=== PATIENT | female | born 1960 | race Caucasian/White ===

== ENCOUNTER → 2019-11-13 11:09 | Outpatient (CLI) | payer OTHER, SELFPAY ==
--- NOTE | 2019-11-13 11:24 | DI.MG.S_ITS ---
Patient Name: MARY BEVERLY date: 1960 Sex: F Attending Physician: Estiven Indications: Date: 11/13/2019 11:27 At the request of: IONA EUCEDA Procedure: MM screening mammo BI BILATERAL DIGITAL SCREENING MAMMOGRAM 3D/2D WITH CAD: 11/13/2019 CLINICAL: Routine screening. Comparison is made to exams dated: 12/16/2017 mammogram, 07/22/2016 mammogram, and 10/05/2013 mammogram - [facility]. There are scattered fibroglandular elements in both breasts. Current study was also evaluated with a Computer Aided Detection (CAD) system. No significant masses, calcifications, or other findings are seen in either breast. There has been no significant interval change. IMPRESSION: NEGATIVE There is no mammographic evidence of malignancy. A 1 year screening mammogram is recommended. This exam was interpreted at Station ID: [id number]. NOTE: For mammograms, a report in lay terms will be sent to the patient. Approximately 15% of breast malignancies will not be visualized mammographically. In the management of a palpable breast mass, a negative mammogram must not discourage biopsy of a clinically suspicious lesion. Electronically Signed By: Kaleigh torres/jesika:11/15/2019 11:24:15 letter sent: Normal Exam ACR BI-RADS Category 1: Negative 3341F
== END ==
PROVIDERS: PCP Student in an Organized Health Care Education/Training Program; Referring Provider Student in an Organized Health Care Education/Training Program; Visit Provider Student in an Organized Health Care Education/Training Program
DX: Z12.31 Encounter for screening mammogram for malignant neoplasm of breast (principal)
CPT/HCPCS: 77063; 77067

== ENCOUNTER → 2020-04-07 14:12 | Outpatient (CLI) | payer OTHER, SELFPAY ==
--- NOTE | 2020-04-07 | DI.US.S_ITS ---
PROCEDURE: US PELVIC COMPLETE INDICATIONS: IUD PLACEMENT TECHNIQUE: Real-time scanning was performed of the pelvic organs, with image documentation. Additional endovaginal scanning was necessary due to incomplete visualization of the adnexal and endometrial structures by transabdominal scanning. COMPARISON: None. FINDINGS: Uterus: Uterus is normal in size at 3.8 x 4.6 x 8.7 cm, anteverted. The endometrium measures 6.4 mm in combined thickness. IUD located within the lower uterine segment area, with the IUD margin apparently penetrating the anterior myometrium, depth indeterminate. Ovaries: Not seen Other: No pathologic free abdominal or pelvic fluid. IMPRESSION: IUD extends into the lower uterine segment/upper cervical margin with apparent partial penetration into the myometrium by a component of the IUD. No hematoma is associated. Normal endometrial lining and myometrium more superiorly. Nonvisualization of the ovaries bilaterally due to overlying bowel gas. Dictated by: Moisés Baker M.D. on 04/07/2020 at 15:35 Approved by: Moisés Baker M.D. on 04/07/2020 at 15:37
== END ==
PROVIDERS: PCP Student in an Organized Health Care Education/Training Program; Referring Provider Student in an Organized Health Care Education/Training Program; Visit Provider Student in an Organized Health Care Education/Training Program
DX: Z30.431 Encounter for routine checking of intrauterine contraceptive device (principal)
CPT/HCPCS: 76830; 76856

== ENCOUNTER → 2020-05-25 08:49 | Outpatient (CLI) | payer OTHER, SELFPAY ==
[2020-05-25 09:45] LABS: COVID19 -Nasal RAPID Negative (Negative)
== END ==
PROVIDERS: PCP Student in an Organized Health Care Education/Training Program; Visit Provider Specialist
DX: Z01.812 Encounter for preprocedural laboratory examination (principal); Z20.822 Contact with and (suspected) exposure to COVID-19
CPT/HCPCS: 87635

== ENCOUNTER 2020-05-26 07:29 | Day surgery (SDC) | payer OTHER, SELFPAY ==
[2020-05-26] VITALS (9 sets, daily range): BP systolic 108–143; BP diastolic 61–90; PULSE 70–95; RESP 12–18; TEMP 36.3–36.8; O2SAT 93–97; BMI 34.1
--- NOTE | 2020-05-26 | PATH_ITS ---
[facility] Accession Number: [id number] . 01 Material submitted: . endometrium - ENDOMETRIAL CURRETINGS . 02 Diagnosis: Endometrium, Curettings: 1. Pseudodecidualized endometrium. 2. One endometrial fragment with fibrosis and a few thick walled vessels suggestive of polyp in the appropriate radiologic and clinical setting. 3. Squamous epithelium with no diagnostic abnormality. 4. Negative for atypical hyperplasia and malignancy. MRV 05/31/2020 1400 Local . 02 Electronically signed: . Lisa Paniagua MD, Pathologist NPI- [id number] . 01 Gross description: . ENDOMETRIAL CURRETINGS: Received in formalin are minute fragments of mucoid and hemorrhagic material measuring 0.4 x 0.4 x 0.3 cm in aggregate. Submitted in toto in 1 cassette. /LEONEL 05/30/2020 0129 Local . 02 Pathologist provided ICD-10: T83.32XA . 02 CPT . 564814 Performed at: 01 [facility] [address] [facility], [place], [place] [id number] MD Jude Yun MD Phone: [phone] Performed at: 02 [facility] [address] [place], [place] [id number] MD Lisa Paniagua MD Phone: [phone]
[2020-05-26] MEDS: LACTATED RINGERS 1,000 ML 100 ML IV (08:07)
--- NOTE | 2020-05-26 08:11 | PM.PREOP ---
Pre-operative Note COVID-19 COVID-19 status: Negative Result date/Date tested (Pos, Neg/Pending): 05/25/20 Interval Note History & Physical reviewed/Exam performed by Physician: Yes Changes to H&P: No
--- NOTE | 2020-05-26 08:39 | SUR.OPER ---
Lithotomy on padded OR bed, head on pillow, arms secured on padded arm boards at <90 degrees abduction. Legs secured in padded yellow fins stirrups.
--- NOTE | 2020-05-26 08:50 | PM.OP.1 ---
Operative Date/Time/Diagnoses Date of procedure: 05/26/20 Time of procedure: 08:50 Pre-op diagnosis: Retained IUD Post-op diagnosis: same Procedure & Clinicians Procedure: Hysteroscopy with removal of retained IUD, with D&C Same procedure as scheduled: Yes Indications: Retained IUD initially placed in 2018 for menorrhagia Surgeon: Mia Turner Click Yes if Unassisted: Yes Anesthesia Type: General Operative Notes Findings: IUD easily removed after cervical dilation. Endometrial lining appeared thin without lesions of the endometrium or endocervical canal. Closure Type: not applicable Specimen(s): other (Endometrial curettage) Estimated Blood Loss (mL): 1 Blood products transfused: none Procedure in detail: The patient was brought to the operating room where she underwent general anesthesia. She was placed in low stirrups She was prepped and draped in usual sterile fashion with pulsatile stockings in place and functional, warming in place. Antibiotics were not indicated. Her bladder was drained with in and out catheter. A single-tooth tenaculum was placed on the anterior lip of the cervix and the uterus dilated to #8 Hegar dilator. After dilation the IUD strings presented to the cervical os and the strings were grasped and the IUD removed without difficulty. The hysteroscope was placed into the uterus with a sorbitol solution running and under constant suction. A endometrial curettage was performed. The endometrial curettage was sent to pathology. The patient went to recovery room in good condition counts of instruments and sponges were correct. Complications: none Post-operative Condition: stable Disposition: same day surgery Plan for aftercare: Home when awake and stable. No further follow-up needed.
[2020-05-26] MEDS: ONDANSETRON 4 MG/2 ML INJ IV (09:15)
[2020-05-26] MEDS: OXYCODONE/ACETAMINOPHEN 5/325 TABLET 1 TAB PO ×2 (09:15→09:44)
--- NOTE | 2020-05-26 10:08 | SUR.PHASEII ---
Pt medicated with additional pain med, ready to go now, pain now 2/10, dressed, scant to small amount bloody drainage on leonel pad.
--- NOTE | 2020-05-26 10:42 | SUR.PHASEII ---
Pt left when ready and left in stable condition.
--- NOTE | 2020-05-26 10:44 | SUR.PHASEII ---
10:15am:Pt left when ready and left in stable condition.
== END 2020-05-26 10:15 | disposition home or self-care (01) ==
PROVIDERS: PCP Student in an Organized Health Care Education/Training Program; Referring Provider Specialist; Visit Provider Specialist
PROC: 0UDB8ZZ Extraction of Endometrium, Via Natural or Artificial Opening Endoscopic (ICD-10-PCS; CPT 58558; principal; 2020-05-26 08:45)
DX: N94.6 Dysmenorrhea, unspecified (principal); T83.32XA Displacement of intrauterine contraceptive device, initial encounter
CPT/HCPCS: 58558; 58301; J1100; J2405; J2704; J3010

== ENCOUNTER → 2021-05-18 14:20 | Outpatient (CLI) | payer OTHER, SELFPAY ==
--- NOTE | 2021-05-18 | DI.MG.S_ITS ---
BILATERAL DIGITAL SCREENING MAMMOGRAM 3D/2D WITH CAD: 05/18/2021 Comparison is made to exams dated: 11/13/2019 mammogram - [facility], 12/16/2017 mammogram, and 07/22/2016 mammogram - [facility]. There are scattered fibroglandular elements in both breasts. Current study was also evaluated with a Computer Aided Detection (CAD) system. No significant masses, calcifications, or other findings are seen in either breast. There has been no significant interval change. IMPRESSION: NEGATIVE There is no mammographic evidence of malignancy. A 1 year screening mammogram is recommended. This exam was interpreted at Station ID: [id number]. NOTE: For mammograms, a report in lay terms will be sent to the patient. Approximately 15% of breast malignancies will not be visualized mammographically. In the management of a palpable breast mass, a negative mammogram must not discourage biopsy of a clinically suspicious lesion. Electronically Signed By: Rafael Harris acr/penrad:05/18/2021 14:47:29 letter sent: Normal Exam ACR BI-RADS Category 1: Negative 3341F
== END ==
PROVIDERS: PCP Student in an Organized Health Care Education/Training Program; Referring Provider Student in an Organized Health Care Education/Training Program; Visit Provider Student in an Organized Health Care Education/Training Program
DX: Z12.31 Encounter for screening mammogram for malignant neoplasm of breast (principal)
CPT/HCPCS: 77063; 77067

== ENCOUNTER → 2022-06-03 12:56 | Outpatient (CLI) | payer OTHER, SELFPAY ==
--- NOTE | 2022-06-03 | DI.RAD.S_ITS ---
PROCEDURE: XR THORACIC SPINE 2V INDICATIONS: BACK PAIN TECHNIQUE: 3 views of the thoracic spine were acquired. COMPARISON: None. FINDINGS: Bones: No acute fractures or dislocations. No suspicious bony lesions. 12 pairs of ribs are noted, and appear intact where visualized. Mild dextrocurvature of the mid and lower thoracic spine centered at approximately the T9 level. No acute compression fracture. Multilevel spondylosis of the thoracic spine and imaged portions of the lower cervical spine. Soft tissues: No paravertebral stripe thickening. Visualized portions of the lungs are clear. Surgical clips in right upper quadrant compatible with prior cholecystectomy. IMPRESSION: Thoracic spine without acute osseous abnormalities. Multilevel thoracic spondylosis. Dictated by: Timothy Reynoso M.D. on 06/03/2022 at 17:21 Approved by: Timothy Reynoso M.D. on 06/03/2022 at 17:22
--- NOTE | 2022-06-03 | DI.RAD.S_ITS ---
PROCEDURE: XR LUMBAR SPINE 2-3V INDICATIONS: Dorsalgia, unspecified TECHNIQUE: 3 views of the lumbar spine were acquired. COMPARISON: None. FINDINGS: Bones: 5 [id number] vertebrae are present. There is normal bony alignment. No acute vertebral body compression fractures. No suspicious bony lesions. Multilevel spondylosis of the imaged spine. Mid and lower lumbar facet arthropathy. Soft tissues: Overlying bowel gas pattern is normal. No suspicious soft tissue calcifications. Surgical clips in the right upper quadrant compatible with prior cholecystectomy. IMPRESSION: Lumbar spine without acute osseous abnormalities. Multilevel lumbar spondylosis. Dictated by: Timothy Reynoso M.D. on 06/03/2022 at 17:20 Approved by: Timothy Reynoso M.D. on 06/03/2022 at 17:20
== END ==
PROVIDERS: PCP Student in an Organized Health Care Education/Training Program; Referring Provider Student in an Organized Health Care Education/Training Program; Visit Provider Student in an Organized Health Care Education/Training Program
DX: M47.814 Spondylosis without myelopathy or radiculopathy, thoracic region (principal); M47.816 Spondylosis without myelopathy or radiculopathy, lumbar region; M54.9 Dorsalgia, unspecified
CPT/HCPCS: 72070; 72100

== ENCOUNTER → 2022-06-13 13:00 | Outpatient (CLI) | payer OTHER, SELFPAY ==
--- NOTE | 2022-06-13 | DI.CT.S_ITS ---
ROCEDURE: CT ABDOMEN PELVIS W CON INDICATIONS: Unspecified abdominal pain. LRQ abdominal pain for 2 days. Gallbladder and appendix removed. TECHNIQUE: After the administration of oral and intravenous contrast, axial sections were acquired from the lung bases to the pubic symphysis. Coronal and sagittal reformats were performed. For radiation dose reduction, the following was used: automated exposure control, adjustment of mA and/or kV according to patient size. COMPARISON:None. FINDINGS: Image quality: Excellent. Lung bases: Unremarkable. Heart: No significant findings. ABDOMEN: Liver: Unremarkable. Gallbladder: Absent. Biliary ducts: Unremarkable. Pancreas: Unremarkable. Spleen: Unremarkable. Adrenal Glands: Unremarkable. Kidneys and Ureters: Punctate, nonobstructing left-sided renal stone.. Stomach and Bowel: Stomach, small bowel loops, and colon are unremarkable. Fecal debris within the small-bowel. Peritoneum: No abnormal intraperitoneal fluid. No free air. Ventral Wall: No hernia. Abdominal Nodes: No retroperitoneal or mesenteric adenopathy by size criteria. Vessels: Aorta and inferior vena cava are normal in size. PELVIS: Pelvic Organs: Unremarkable. Bladder: Unremarkable. Pelvic Nodes: No enlarged lymph nodes. Miscellaneous: No inguinal hernias are seen. Bones: Unremarkable. IMPRESSION: Fecal debris within the small-bowel, usually indicating small intestinal bacterial overgrowth versus slow transit. Dictated by: Josue Brandt M.D. on 06/13/2022 at 15:41 Approved by: Josue Brandt M.D. on 06/13/2022 at 15:45
== END ==
PROVIDERS: PCP Student in an Organized Health Care Education/Training Program; Referring Provider Student in an Organized Health Care Education/Training Program; Visit Provider Student in an Organized Health Care Education/Training Program
DX: R10.9 Unspecified abdominal pain (principal); R19.7 Diarrhea, unspecified
CPT/HCPCS: 74177; Q9967

== ENCOUNTER → 2022-06-18 15:49 | Outpatient (CLI) | payer OTHER, SELFPAY ==
--- NOTE | 2022-06-18 | DI.US.S_ITS ---
PROCEDURE: US PELVIC COMPLETE INDICATIONS: RIGHT PELVIC PAIN TECHNIQUE: Real-time scanning was performed of the pelvic organs, with image documentation. Additional endovaginal scanning was necessary due to incomplete visualization of the adnexal and endometrial structures by transabdominal scanning. COMPARISON: [facility], CT, CT ABDOMEN PELVIS W CON, 06/13/2022, 14:37. [facility], US, US PELVIC COMPLETE, 04/07/2020, 14:23. FINDINGS: Uterus: Uterus is anteverted and normal in size at 8.0 x 5.4 x 4.1 cm. The myometrium is heterogeneous. The endometrium is ill-defined and measures approximately 5 mm. There is a possible posterior uterine body intramural-submucosal fibroid, 1.7 x 2.0 x 1.9 cm. Ovaries: Not visualized likely due to bowel gas and/or senescent change. Other: No pathologic free abdominal or pelvic fluid. IMPRESSION: 1. The ovaries are not visualized, likely due to bowel gas and/or senescent change. No adnexal mass identified. 2. Possible intramural-submucosal fibroid, approximately 2.0 cm. Imaging follow-up can be obtained as clinically indicated. We strive to produce accurate, complete, and clear reports of imaging services. To assist us in improving patient care, this report was composed using standard report templates and voice recognition software. Therefore, it may contain abnormal punctuation, insertions and/or omissions. Occasional wrong-word or sound-alike substitutions may occur. Though we review the report and make efforts to correct it, we do recommend that the report be read carefully in proper context to recognize any text inaccuracies. Dictated by: Jonathon Méndez M.D. on 06/19/2022 at 8:51 Approved by: Jonathon Méndez M.D. on 06/19/2022 at 9:04
== END ==
PROVIDERS: PCP Student in an Organized Health Care Education/Training Program; Referring Provider Internal Medicine; Visit Provider Internal Medicine
DX: R10.31 Right lower quadrant pain (principal)
CPT/HCPCS: 76830; 76856